=== PATIENT | male | born 1995 | race Caucasian/White ===

== ENCOUNTER 2019-11-09 12:59 | Inpatient (IN) | payer BC ==
[~2019-11-09] VITALS: Ht 177.8 cm; Wt 127.0 kg
--- NOTE | 2019-11-09 13:20 | NUR ---
Patient ambulated with stable gait. Patient obtunded, cannot speak in complete sentences, or clearly. Per chapperone patient was given phenobarbital and other medications to help the patient. Respiratory even and unlabored, no cough no sob. No cardiovascular distress, no palpitations, all pulses palpable. Patient in bed at lowest position, sr upx2, call light within reach. Fall and safety precautions implemented per protocol.
[2019-11-09] MEDS ORDERED: CEFTRIAXONE 2 G in IV DEXTROSE 5% 100 ML IV ONE (13:45)
[2019-11-09] MEDS ORDERED: IV NORMAL SALINE 1000 ML BAG IV ONE (13:45)
[2019-11-09] MEDS ORDERED: VANCOMYCIN IV 1,000 MG in IV DEXTROSE 5% 250 ML IV ONE (13:45)
[2019-11-09] MEDS ORDERED: VANCOMYCIN IV 200 ML ONE (14:13)
[2019-11-09] MEDS ORDERED: CEFTRIAXONE 1 G VIAL ONE ×2 (14:13→14:14)
--- NOTE | 2019-11-09 14:20 | NUR ---
Patient in bed, respirations even and unlabored. patients pulse oximetry at 98%, no signs of respiratory distress or compromise. Respiratory tract unobstructed as patient is sat at 90 degrees. Will continue to monitor.
[2019-11-09 14:44] LABS: BASOPHILS # (AUTO) 0.1 K/uL (0.0-8.0); BASOPHILS % (AUTO) 0.7 % (0.0-2.0); EOSINOPHILS # (AUTO) 0.2 K/uL (0.0-0.7); EOSINOPHILS % (AUTO) 1.8 % (0.0-7.0); HEMATOCRIT 35.4 % (36.7-47.1); HEMOGLOBIN 12.2 g/dL (12.5-16.3); LYMPHOCYTES # (AUTO) 1.6 K/uL (20.0-40.0); LYMPHOCYTES % (AUTO) 14.9 % (20.5-51.5); MEAN CORPUSCULAR HEMOGLOBIN 28.6 uug (23.8-33.4); MEAN CORPUSCULAR HGB CONC 35 g/dL (32.5-36.3); MEAN CORPUSCULAR VOLUME 82.9 fL (73.0-96.2); MONOCYTES # (AUTO) 0.4 K/uL (2.0-10.0); MONOCYTES % (AUTO) 3.6 % (0.0-11.0); NEUTROPHILS # (AUTO) 8.7 K/uL (1.8-8.9); PLATELET COUNT (AUTO) 284 K/uL (152-348); RED BLOOD CELL COUNT(AUTO) 4.27 MIL/uL (4.06-5.63)
[2019-11-09 14:49] LABS: CREATININE 1.4 mg/dL (0.6-1.3); POTASSIUM 3.4 mmol/L (3.5-5.1)
[2019-11-09 14:55] LABS: BILIRUBIN,DIRECT 0.1 mg/dL (0.0-0.2); BILIRUBIN,TOTAL 0.4 mg/dL (0.2-1.0); TOTAL PROTEIN, SERUM 6.7 g/dL (6.4-8.2)
--- NOTE | 2019-11-09 15:39 | NUR ---
called rodrick, , to get the med list. pt comes from [facility] [phone]
[2019-11-09] MEDS ORDERED: SULF1TAB48 PO (15:54)
[2019-11-09] MEDS ORDERED: flexeril (15:54)
[2019-11-09] MEDS ORDERED: PHEN32.46 PO (15:54)
[2019-11-09] MEDS ORDERED: CEPH-570 PO (15:54)
[2019-11-09] MEDS ORDERED: suboxone PO (15:54)
[2019-11-09] MEDS ORDERED: DICY10CA13 PO ×2 (15:54)
[2019-11-09] MEDS ORDERED: GABA600T12 PO (15:54)
[2019-11-09] MEDS ORDERED: CLON0.1T PO (15:54)
[2019-11-09] MEDS ORDERED: IBUP-1957 PO (15:54)
[2019-11-09] MEDS ORDERED: QUET100T PO (15:54)
[2019-11-09] MEDS ORDERED: ONDA8TAB6 PO (15:54)
--- NOTE | 2019-11-09 16:37 | NUR ---
Report given to LEONARDO Garcia
[2019-11-09] MEDS ORDERED: IV NS 1000 ML 1,000 ML IV PRN (17:01)
[2019-11-09] MEDS ORDERED: Z GUARD REMEDY PASTE 57 GM TUBE TOP PRN (17:15)
[2019-11-09] MEDS ORDERED: ACETAMINOPHEN 325 MG TABLET PO PRN (17:15)
[2019-11-09] MEDS ORDERED: TEMAZEPAM 15 MG CAPSULE PO PRN (17:15)
[2019-11-09] MEDS ORDERED: MAGNESIUM HYDROXIDE 30 ML LIQUID UDC PO PRN (17:15)
[2019-11-09] MEDS ORDERED: HYDROCODONE/APAP 10-325 MG TABLET PO PRN (17:15)
--- NOTE | 2019-11-09 17:15 | NUR ---
Patient transported to [place] in stable condition.
[2019-11-09] MEDS ORDERED: DICYCLOMINE HCL 10 MG CAPSULE PO PRN (17:30)
[2019-11-09] MEDS ORDERED: QUETIAPINE FUMARATE 100 MG TABLET PO PRN (17:30)
--- NOTE | 2019-11-09 17:37 | NUR ---
CLINICAL PHARMACY NOTE:VANCOMYCIN DOSING Request for vancomycin dosing on 24 y/o male 177.8cm 127kg for cellulitis right forearm Temp 98.2 BUN 7 Scr 1.4 WBC 11.0 also on ceftriaxone, received vancomycin 1gm in ER. Continue vancomycin 2gm ivpb q12h estimate trough 16. Will order trough prior to 4th dose. Will continue to monitor
[2019-11-09 17:59] VITALS: BP 144/86
--- NOTE | 2019-11-09 18:00 | NUR ---
Received pt in bed asleep but arousable to name and touch, very lethargic. Answers questions groggily and can't full form words and sentences. On RA with no SOB or distress noted, saturating 99%. IV on left shoulder 20g removed, IV on left wrist 20g, flushed and patent. Started NS @ 125cc/hr. Redness and wounds on right arm, left arm scabs, facial and bilateral feet scabs were noted, pic taken and placed in chart. Bed locked in lowest position with siderails 2x up. Call light within reach. Refused to change to hospital gown. Will endorse to next shift.
[2019-11-09] MEDS: IV NS 1000 ML 1,000 ML IV PRN (18:48)
[2019-11-09 20:26] VITALS: BP 127/67
[2019-11-09] MEDS: METRONIDAZOLE 500 MG/NS 100ML 500 MG in PREMIXED 1 EACH IV SCH (21:33)
[2019-11-09] MEDS: LORAZEPAM 2 MG/1 ML VIAL IV PRN (21:33)
[2019-11-10] MEDS ORDERED: VANCOMYCIN IV 2,000 MG in IV DEXTROSE 5% 500 ML IV SCH ×2
[2019-11-10] MEDS: LORAZEPAM 2 MG/1 ML VIAL IV PRN ×3 (02:49→22:55)
[2019-11-10 05:34] VITALS: BP 98/50
--- NOTE | 2019-11-10 05:48 | NUR ---
pt sleeping comfortably in bed. pt stated he has obstructive sleep apnea, pt put on 2L N[place] for comfort. wound cleaned with normal saline and wrapped in kerlix. wound initially weeping of purulent fluid
[2019-11-10] MEDS: IV NS 1000 ML 1,000 ML IV PRN (06:38)
[2019-11-10] MEDS: METRONIDAZOLE 500 MG/NS 100ML 500 MG in PREMIXED 1 EACH IV SCH ×2 (06:38→21:35)
[2019-11-10] MEDS: PANTOPRAZOLE SODIUM 40 MG TABLET.DR PO SCH (06:52)
[2019-11-10] MEDS: HYDROCODONE/APAP 5-325MG TABLET PO PRN (08:38)
--- NOTE | 2019-11-10 12:20 | NUR ---
new ASH midline 18g inserted, but got dislodged. Informed Pharmacy that Vanco can't be administered
[2019-11-10 12:28] LABS: BASOPHILS # (AUTO) 0.1 K/uL (0.0-8.0); BASOPHILS % (AUTO) 0.7 % (0.0-2.0); EOSINOPHILS # (AUTO) 0.4 K/uL (0.0-0.7); EOSINOPHILS % (AUTO) 4.5 % (0.0-7.0); HEMATOCRIT 35.3 % (36.7-47.1); LYMPHOCYTES # (AUTO) 1.7 K/uL (20.0-40.0); LYMPHOCYTES % (AUTO) 21.5 % (20.5-51.5); MEAN CORPUSCULAR HEMOGLOBIN 28.5 uug (23.8-33.4); MEAN CORPUSCULAR HGB CONC 34 g/dL (32.5-36.3); MEAN CORPUSCULAR VOLUME 83.6 fL (73.0-96.2); MONOCYTES # (AUTO) 0.5 K/uL (2.0-10.0); MONOCYTES % (AUTO) 6.3 % (0.0-11.0); NEUTROPHILS # (AUTO) 5.2 K/uL (1.8-8.9); PLATELET COUNT (AUTO) 317 K/uL (152-348); RED BLOOD CELL COUNT(AUTO) 4.22 MIL/uL (4.06-5.63); WHITE BLOOD COUNT (AUTO) 7.8 K/uL (3.6-10.2)
[2019-11-10 12:45] LABS: CREATININE 1.4 mg/dL (0.6-1.3); MAGNESIUM 1.7 mg/dL (1.8-2.4); POTASSIUM 3.9 mmol/L (3.5-5.1)
--- NOTE | 2019-11-10 13:41 | NUR ---
CLINICAL PHARMACY NOTE:VANCOMYCIN DOSING To start vancomycin dosing on 24 y/o male 177.8cm 127kg for cellulitis right forearm (h/o IVDA) Temp 98 BUN 4 Scr 1.4 WBC 7.8 also on ceftriaxone, received vancomycin 1gm in ER. Pt received one dose of 2gm 11/09 @0000 (first dose of regimen 2gm q12hr), however was found with IV dislodged this am. Midline was placed around noon, labs drawn, however shortly after RN reported IV had been dislodged again before she could give next scheduled dose at 1200. Now pending second reinsertion estimated this afternoon. Rx did f/u with MD if would like oral option in meantime however, per MD, none for now. Will await for IV reinsertion and will continue same scheduled regimen as renal function has remained stable. Will follow Addendum: 11/10/19 at 1720 by ZARA SANDOVAL ADM PT LINE HAS BEEN REINSERTED, WILL RESTART REGIMEN VANCO 2GM Q12HR, FIRST DOSE TONIGHT AT 1900. WILL FOLLOW AND ORDER TROUGH ACCORDINGLY
[2019-11-10] MEDS ORDERED: CEFTRIAXONE 2 G in IV DEXTROSE 5% 100 ML IV SCH (14:00)
[2019-11-10] MEDS ORDERED: CEFTRIAXONE 1 G in IV DEXTROSE 5% 50 ML IV SCH (14:00)
--- NOTE | 2019-11-10 14:00 | NUR ---
IV Flagyl and Rocephin not given d/t no IV access. Pharmacy made aware.
[2019-11-10] MEDS ORDERED: LORAZEPAM 1 MG TABLET PO ONE (14:30)
[2019-11-10] MEDS: NICOTINE 21 MG/24HR PATCH TD SCH (15:03)
--- NOTE | 2019-11-10 15:12 | NUR ---
Pt still lethargic and groggy but able to answer questions and make needs known. Pt cooperative. Ativan PO once given per MD order. Nicotine patch on right upper arm applied
[2019-11-10 16:00] VITALS: BP 105/48
[2019-11-10] MEDS: VANCOMYCIN IV 2,000 MG in IV DEXTROSE 5% 500 ML IV SCH (18:14)
--- NOTE | 2019-11-10 18:56 | NUR ---
Pt drowsy throughout shift but cooperative. Midline inserted and started Vanco IV. Reinforced teachings to patient and verbalizes understanding. On O2 @ 2L due to sleep apnea, but no other complaints of SOB or distress at this time.
--- NOTE | 2019-11-10 20:10 | NUR ---
SPOKE WITH LIVIER AT [facility]. MORNING NURSE ENDORSED TO ME TO ADMINISTER IV FLAGYL AND ROCEPHIN DUE TO MULTIPLE PIV ATTEMPTS IN THE DAY TIME AND UNSUCCESSFUL. ANTIBIOTIC TIMES CHANGED.
[2019-11-10 20:24] VITALS: BP 128/73
[2019-11-10] MEDS: CEFTRIAXONE 2 G in IV DEXTROSE 5% 100 ML IV SCH (20:42)
--- NOTE | 2019-11-10 21:44 | NUR ---
UA COLLECTED AND WILL BE SENT TO LABORATORY.
[2019-11-10 22:36] LABS: *BILIRUBIN,URIN NEGATIVE (NEGATIVE); *BLOOD, URINE NEGATIVE (NEGATIVE); *CLARITY,URINE CLEAR (CLEAR); *COLOR,URINE YELLOW (YELLOW); *KETONES,URINE NEGATIVE (NEGATIVE); *UROBILINOGEN,URINE 0.2 E.U./dl (NORMAL); LEUKOCYTE ESTERASE ,URINE NEGATIVE (NEGATIVE); NITRITE, URINE NEGATIVE (NEGATIVE); UGLUCOSE NEGATIVE (NEGATIVE)
[2019-11-10] MEDS ORDERED: VANCOMYCIN 1000 MG VIAL ONE (22:36)
[2019-11-11 04:24] VITALS: BP 115/62
[2019-11-11] MEDS: METRONIDAZOLE 500 MG/NS 100ML 500 MG in PREMIXED 1 EACH IV SCH ×3 (05:43→21:17)
[2019-11-11] MEDS: IV NS 1000 ML 1,000 ML IV PRN (05:44)
[2019-11-11] MEDS: VANCOMYCIN IV 2,000 MG in IV DEXTROSE 5% 500 ML IV SCH ×2 (06:29→16:30)
[2019-11-11] MEDS: PANTOPRAZOLE SODIUM 40 MG TABLET.DR PO SCH (06:29)
--- NOTE | 2019-11-11 06:39 | NUR ---
patient shouting and cussing to RN and staff members to take a shower. no staff member available to watch for patient safety. continuous yelling and screaming at RN and staff members that he would like to go home. Addendum: 11/11/19 at 0642 by IVANA HOFFMAN RN patient refused ativan.
--- NOTE | 2019-11-11 07:51 | NUR ---
ENDORSED TO MORNING NURSE LETY TO OBTAIN WOUND CULTURE ON PATIENT FA.
[2019-11-11] MEDS: NICOTINE 21 MG/24HR PATCH TD SCH (08:02)
[2019-11-11] MEDS: ONDANSETRON 4 MG/2 ML VIAL IV PRN (08:03)
[2019-11-11] MEDS: LORAZEPAM 2 MG/1 ML VIAL IV PRN (08:04)
[2019-11-11 09:15] LABS: BASOPHILS % (AUTO) 0.6 % (0.0-2.0); EOSINOPHILS # (AUTO) 0.4 K/uL (0.0-0.7); EOSINOPHILS % (AUTO) 6.2 % (0.0-7.0); HEMATOCRIT 34.6 % (36.7-47.1); HEMOGLOBIN 11.7 g/dL (12.5-16.3); LYMPHOCYTES # (AUTO) 1.6 K/uL (20.0-40.0); LYMPHOCYTES % (AUTO) 28.6 % (20.5-51.5); MEAN CORPUSCULAR HEMOGLOBIN 28.1 uug (23.8-33.4); MEAN CORPUSCULAR HGB CONC 34 g/dL (32.5-36.3); MEAN CORPUSCULAR VOLUME 82.8 fL (73.0-96.2); MONOCYTES # (AUTO) 0.4 K/uL (2.0-10.0); MONOCYTES % (AUTO) 7.2 % (0.0-11.0); NEUTROPHILS # (AUTO) 3.3 K/uL (1.8-8.9); NEUTROPHILS % (AUTO) 57.4 % (38.5-71.5); PLATELET COUNT (AUTO) 325 K/uL (152-348); RED BLOOD CELL COUNT(AUTO) 4.17 MIL/uL (4.06-5.63); WHITE BLOOD COUNT (AUTO) 5.7 K/uL (3.6-10.2)
[2019-11-11 09:32] LABS: BILIRUBIN,TOTAL 0.2 mg/dL (0.2-1.0); CREATININE 1.1 mg/dL (0.6-1.3); MAGNESIUM 2.3 mg/dL (1.8-2.4); PHOSPHOROUS 3.9 mg/dL (2.5-4.9); POTASSIUM 3.5 mmol/L (3.5-5.1); TOTAL PROTEIN, SERUM 6.2 g/dL (6.4-8.2)
--- NOTE | 2019-11-11 09:58 | NUR ---
Pt received ambulating independently from bathroom with IV pole, yelling about prior confrontation with another nurse, cussing about not being showered yet, and feeling "like crap, just not good, from all the withdrawals". PRN Ativan and Zofran administered per MD orders. Zofran proven effective, emesis and nausea subsided. Pt seen by [employer] OPERATOR, d/c plan discussed with Pt, anticipated for tomorrow. All needs attended to at this time. Right wound swabbed and sent to lab for culture. Wound care provided as ordered, extremity wrapped, and elevated. No acute distress at this time. Will continue to monitor.
[2019-11-11 10:00] VITALS: BP 135/61
--- NOTE | 2019-11-11 11:16 | NUR ---
Pt assisted to shower, with minimal assist. Wound care provided again and Pt receiving fluids. All needs promptly attended to, will continue to monitor.
[2019-11-11] MEDS: HYDROCODONE/APAP 5-325MG TABLET PO PRN ×2 (11:27→16:28)
--- NOTE | 2019-11-11 12:59 | NUR ---
CLINICAL PHARMACY NOTE:VANCOMYCIN DOSING To continue vancomycin dosing on 24 y/o male 177.8cm 127kg for cellulitis right forearm (h/o IVDA) Temp 98.5 BUN 3 Scr 1.1 WBC 5.7 also on ceftriaxone, received vancomycin 1gm in ER. Assessment/Plan As renal function has improved, adjusted regimen to 2gm q9h, second dose today at 1600, for estimated trough of 17.3. Ordered trough before 4th scheduled dose (due tomorrow at 0930). Will check trough when available and adjust as needed. Will follow
[2019-11-11 16:00] VITALS: BP 97/52
--- NOTE | 2019-11-11 16:05 | NUR ---
Left upper arm Midline infiltrated. made aware, new order received for PICC line insertion. Consent for PICC line signed and placed in chart. PICC line inserted to right upper arm, 5 j[place]ican. U/S of left upper extremity ordered to R/O DVT. Will continue to monitor for safety.
[2019-11-11] MEDS ORDERED: LORAZEPAM 2 MG/1 ML VIAL IV ONE (19:00)
--- NOTE | 2019-11-11 19:45 | NUR ---
Received patient agitated. Patient shows no signs or symptoms of distress at this time. Patient requested with day shift nurse to leave the hospital and to have PICC line removed. Spoke to patient and was able to convince him to stay. As per day shift nurse, Nelida marino, does not have enough staff to care for him at this time. Patient informed and understands. Bed set to lowest position. Call light within reach. Side rails x2 are up. Will continue to monitor patient.
[2019-11-11] MEDS ORDERED: ZOLPIDEM 5 MG TABLET PO PRN (20:15)
[2019-11-11] MEDS: CEFTRIAXONE 2 G in IV DEXTROSE 5% 100 ML IV SCH (20:25)
[2019-11-11 20:47] VITALS: BP 134/84
--- NOTE | 2019-11-11 20:50 | NUR ---
Received report from LEONARDO Fung. Patient in bed, awake. Patient has no s/s of acute distress or pain. Patient's vitals are stable. Patient is requesting for sleep medication. Will provide PRN medication. Safety measures in place. Will continue with the plan of care.
[2019-11-12] MEDS: HYDROCODONE/APAP 5-325MG TABLET PO PRN (01:18)
[2019-11-12] MEDS: VANCOMYCIN IV 2,000 MG in IV DEXTROSE 5% 500 ML IV SCH (01:38)
[2019-11-12] MEDS: IV NS 1000 ML 1,000 ML IV PRN (02:35)
[2019-11-12] MEDS: PANTOPRAZOLE SODIUM 40 MG TABLET.DR PO SCH (06:12)
[2019-11-12] MEDS: METRONIDAZOLE 500 MG/NS 100ML 500 MG in PREMIXED 1 EACH IV SCH (06:12)
[2019-11-12 06:38] VITALS: BP 132/72
--- NOTE | 2019-11-12 07:05 | NUR ---
Patient slept intermittently throughout the night. Patient is awake and alertx4. Patient denies any acute distress or pain at this time. Patient's vitals stable. Patient was compliant with all prescribed medications during my shift. Patient was given PRN pain medication as requested. Comfort care and needs provided. Safety measures in place. Call light within reach. Will endorse to the oncoming nurse accordingly.
[2019-11-12] MEDS: ONDANSETRON 4 MG/2 ML VIAL IV PRN (07:53)
--- NOTE | 2019-11-12 08:00 | NUR ---
Pt received to care, awake, a/o x 3. Right Upper Arm PICC line is intact. Pt c/o nausea and was given Zofran prn IV, which was effective. Pt stated he wants to be discharged. Pt agrees to take PO abx at home.
[2019-11-12 08:53] VITALS: BP 125/56
--- NOTE | 2019-11-12 09:31 | NUR ---
Pt is being discharged and picked up by his friend. Discharge instructions are given including the medication teachings. Pt states that he is planning to stay sober and take his antibiotics. PICC line was removed from his right upper arm. No bleeding, the tip is intact. No distress.
[2019-11-12] MEDS: NICOTINE 21 MG/24HR PATCH TD SCH (09:34)
--- NOTE | 2019-11-12 09:51 | NUR ---
Patient has multiple scabs through the body that was present on admission. Pt refused pictures, saying that he just wants to leave right now.
[2019-11-12 16:13] LABS: A/G RATIO 0.8 (0.7-1.7); ALBUMIN 2.4 g/dL (2.9-4.4); ALPHA-1-GLOBULIN 0.4 g/dL (0.0-0.4); ALPHA-2-GLOBULIN 0.8 g/dL (0.4-1.0); BETA GLOBULIN 0.8 g/dL (0.7-1.3); GAMMA GLOBULIN 1.2 g/dL (0.4-1.8); GLOBULIN, TOTAL 3.2 g/dL (2.2-3.9); M-SPIKE Not Observed g/dL (Not Observed)
== END 2019-11-12 09:52 | disposition home or self-care (01) | DRG 871 ==
LOC: ER 12:59 → MEDSURG3 16:41
PROVIDERS: ADMIT Nurse Practitioner Acute Care; ATTEND Nurse Practitioner Acute Care
PROC: 05H533Z Insertion of Infusion Device into Right Subclavian Vein, Percutaneous Approach (ICD-10-PCS; principal; 2019-11-10)
PROC: B546ZZA Ultrasonography of Right Subclavian Vein, Guidance (ICD-10-PCS; principal; 2019-11-10)
DX: A41.9 Sepsis, unspecified organism (principal); N17.0 Acute kidney failure with tubular necrosis; L03.113 Cellulitis of right upper limb; Z68.41 Body mass index [BMI] 40.0-44.9, adult; L02.511 Cutaneous abscess of right hand; E87.6 Hypokalemia; F41.9 Anxiety disorder, unspecified; I10 Essential (primary) hypertension; E66.01 Morbid (severe) obesity due to excess calories; F17.210 Nicotine dependence, cigarettes, uncomplicated; F14.10 Cocaine abuse, uncomplicated; F19.10 Other psychoactive substance abuse, uncomplicated; Z88.0 Allergy status to penicillin; Z79.1 Long term (current) use of non-steroidal anti-inflammatories (NSAID); I80.8 Phlebitis and thrombophlebitis of other sites; Z71.6 Tobacco abuse counseling; Z71.3 Dietary counseling and surveillance; T39.395A Adverse effect of other nonsteroidal anti-inflammatory drugs [NSAID], initial encounter; Y92.009 Unspecified place in unspecified non-institutional (private) residence as the place of occurrence of the external cause
CPT/HCPCS: 36415; 73090; 83735; 83970; 84100; 84155; 84165; 85025; 87040; 87070; 87806; 93005; 93307; A4663; G0378; J0696; J2060; J2405; J3370; J3490; J7030; J7060